=== PATIENT | male | born 1980 | race Hispanic/Latino ===

== ENCOUNTER 2017-06-30 04:16 | Observation (INO) | payer OTHER ==
[2017-06-30] MEDS ORDERED: Sodium Chloride 0.9% 1,000 ML IV STA (05:02)
[2017-06-30 05:16] LABS: BASO # 0.1 K/uL (0.0-0.2); BASO % 1.3 % (0.0-2.0); EOS % 0.6 % (0.0-4.0); HEMOGLOBIN 13.8 g/dL (12.0-18.0); LYMPH # 1.6 K/uL (1.0-4.3); LYMPH % 20.8 % (20.0-40.0); MEAN CELL VOLUME 91.9 fl (80.0-94.0); MEAN CORPUSCULAR HEMOGLOBIN 30.8 pg (27.0-31.0); MEAN CORPUSCULAR HGB CONC 33.5 g/dL (33.0-37.0); MEAN PLATELET VOLUME 7.6 fl (7.2-11.7); MONO # 0.7 K/uL (0.0-0.8); MONO % 8.9 % (0.0-10.0); NEUT # 5.2 K/uL (1.8-7.0); NEUT % 68.4 % (50.0-75.0); NRBC % 0.1 % (0.0-0.0); RBC 4.5 Mil/uL (4.40-5.90); RED CELL DISTRIBUTION WIDTH 15.3 % (11.5-14.5); WHITE BLOOD COUNT 7.7 K/uL (4.8-10.8)
[2017-06-30 05:24] LABS: ALB/GLOB RATIO 1.3 (1.0-2.1); ALBUMIN 3.6 g/dL (3.5-5.0); ALT/SGPT 33 U/L (21-72); AST/SGOT 23 U/L (17-59); BLOOD UREA NITROGEN 8 mg/dl (9-20); CALCIUM 8.3 mg/dL (8.4-10.2); GFR AFRICAN-AMERICAN > 60; GFR NON-AFRICAN AMERICAN > 60; LIPASE 822 U/L (23-300)
--- NOTE | 2017-06-30 05:24 | ED PDOC ---
HPI: Chest Pain Time Seen by Provider: 06/30/17 04:49 Chief Complaint (Nursing): Abdominal Pain Chief Complaint (Provider): Abdominal pain History Per: Patient Additional Complaint(s): Josh is 37 yo M patient with PMH of Anxiety that presents to ED c/o epigastric pain that started 4-5 hours ago while he was sleeping, he said that pain woke him up, he describe the pain 8/10, constant, cramping, no radiated, no allev/ aggrav factors, associated with nbnb vomiting x4 liquid, w/o rest of food on it. He states that on evening he was drinking " wine" on dinner, denies any unusual foods. He denies fever, diarrhea/constipation, chest pain, plapittaions, sob, no urinary symptoms. Past Medical History Vital Signs: Last Vital Signs Temp 97.4 F L 06/30/17 04:25 Pulse 62 06/30/17 04:25 Resp 16 06/30/17 04:25 BP 151/104 H 06/30/17 04:25 Pulse Ox 99 06/30/17 05:51 - Family History Family History: States: No Known Family Hx - Home Medications Home Medications: Ambulatory Orders Medication Instructions Recorded Hydrocodone/Ibuprofen [Vicoprofen 1 tab PO Q6 #12 tab 03/31/14 7.5 mg-200 mg] - Allergies Allergies/Adverse Reactions: Allergies Allergy/AdvReac Type Severity Reaction Status Date / Time No Known Allergies Allergy Verified 03/31/14 11:48 Review of Systems ROS Statement: Except As Marked, All Systems Reviewed And Found Negative Physical Exam - Reviewed Nursing Documentation Reviewed: Yes Vital Signs Reviewed: Yes - Physical Exam Appears: Positive for: No Acute Distress Head Exam: Positive for: NORMAL INSPECTION Cardiovascular/Chest: Positive for: Regular Rate, Rhythm. Negative for: Murmur Respiratory: Positive for: Normal Breath Sounds. Negative for: Rales, Rhonchi, Wheezing Gastrointestinal/Abdominal: Positive for: Bowel Sounds, Soft, Tenderness ( Epigastrium tenderness on palpation, tympanic to percussion, Flood sign negative.). Negative for: Distended Back: Negative for: L CVA Tenderness, R CVA Tenderness Neurologic/Psych: Positive for: Alert, corporate quality manager II-XII, Oriented - Laboratory Results Result Diagrams: 06/30/17 05:05 06/30/17 05:05 - ECG O2 Sat by Pulse Oximetry: 99 - Progress ED Course And Treament: CBC: wnl CMP: wnl Lipase: elevated( 822) Etoh level < 10 UA Drug screen EKG IV fluids Pepcid 20mg IV once Zofran 4mg IV once Reeval. Patient still has pain, elevated lipase level. Toradol for pain Continue IV fluids. Patient to be admitted. Disposition - Clinical Impression Clinical Impression: Pancreatitis - Patient ED Disposition Is Patient to be Admitted: Yes - Disposition Disposition Time: 05:48 Condition: FAIR Forms: [facility] (Iranian)
[2017-06-30] MEDS ORDERED: Lactated Ringer's 1,000 ML IV STA ×3 (05:31→05:40)
[2017-06-30] MEDS: Dextrose 5%/0.9% NS 1,000 ML IV SCH ×2 (08:07→16:24)
--- NOTE | 2017-06-30 08:12 | RAD ---
HISTORY: chest pain COMPARISON: No prior. FINDINGS: LUNGS: Linear atelectasis or bronchovascular overlap is seen in the bilateral medial apices. No acute infiltrate identified bilaterally. PLEURA: No significant pleural effusion identified, no pneumothorax apparent. CARDIOVASCULAR: Normal. OSSEOUS STRUCTURES: No significant abnormalities. VISUALIZED UPPER ABDOMEN: Normal. OTHER FINDINGS: None. IMPRESSION: Limited medial apical linear atelectasis or vascular overlap where fibrosis bilaterally. No acute infiltrate, pleural effusion or pneumothorax bilaterally.
[2017-06-30 08:14] LABS: URINE BILIRUBIN NEGATIVE (NEGATIVE); URINE BLOOD NEGATIVE (NEGATIVE); URINE CLARITY SLIGHTY-CLOUDY (Clear); URINE COLOR YELLOW (YELLOW); URINE GLUCOSE (UA) NEG (Normal); URINE HYALINE CAST 0-2 /hpf (0-2); URINE LEUKOCYTE ESTERASE NEG Leu/uL (Negative); URINE NITRATE NEGATIVE (NEGATIVE); URINE PROTEIN NEGATIVE (NEGATIVE); URINE UROBILINOGEN 0.2-1.0 mg/dL (0.2-1.0)
[2017-06-30 08:24] LABS: BARBITURATES, UR NEGATIVE (NEGATIVE); BENZODIAZEPINES, UR POSITIVE (NEGATIVE); OPIATES, UR NEGATIVE (NEGATIVE); PHENCYCLIDINE, UR NEGATIVE (NEGATIVE)
[2017-06-30 12:38] LABS: HEMOGLOBIN 13.2 g/dL (12.0-18.0); MEAN CELL VOLUME 91.4 fl (80.0-94.0); MEAN CORPUSCULAR HEMOGLOBIN 30.9 pg (27.0-31.0); MEAN CORPUSCULAR HGB CONC 33.7 g/dL (33.0-37.0); RBC 4.28 Mil/uL (4.40-5.90); RED CELL DISTRIBUTION WIDTH 15.3 % (11.5-14.5); WHITE BLOOD COUNT 11.4 K/uL (4.8-10.8)
[2017-06-30 12:56] LABS: BLOOD UREA NITROGEN 6 mg/dl (9-20); CALCIUM 7.7 mg/dL (8.4-10.2); GFR AFRICAN-AMERICAN > 60; GFR NON-AFRICAN AMERICAN > 60; LIPASE 556 U/L (23-300)
--- NOTE | 2017-06-30 14:47 | CARD ---
APPROVED REPORT EKG Measurement Heart [id number] <Conclusion> Sinus bradycardia with sinus arrhythmia Otherwise normal ECG
[2017-06-30 16:27] VITALS: O2SAT 98
--- NOTE | 2017-06-30 17:11 | CP.PCM.CON ---
History of Present Illness - History of Present Illness History of Present Illness: 37 yo male admitted with sudden onset of severe epigastric abdominal pain radiating to his back on the day of admission. He has h/o drinking a six pack of beer daily foryears, though had stopped daily alcohol use about 3 weeks ago. Was given some sort of alcoholic beverage just before these symptoms started. No prior epidodes of pancreatitis though has been having vague abdominal discomfort for about one week. 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 Hx shoulder dislocation x2 - PSYCHIATRIC Hx Psychophysiologic Disorder: Yes Hx Anxiety: Yes Hx Substance Use: Yes - SURGICAL HISTORY Hx Surgeries: Yes Other/Comment: Hx Rhinoplasty x 2 (secondary to trauma) - ANESTHESIA Hx Anesthesia: No Meds Allergies/Adverse Reactions: Allergies Allergy/AdvReac Type Severity Reaction Status Date / Time No Known Allergies Allergy Verified 03/31/14 11:48 - Medications Medications: Current Medications Dextrose/Sodium Chloride (Dextrose 5%/0.9% Ns 1000 Ml) 1,000 mls @ 125 mls/hr IV .Q8H [facility]1983 Stop: 07/01/17 07:54 Last Admin: 06/30/17 16:24 Dose: 125 mls/hr Ketorolac Tromethamine (Toradol) 15 mg IVP Q6 PRN PRN Reason: Pain, moderate (4-7) Last Admin: 06/30/17 10:43 Dose: 15 mg Ondansetron HCl (Zofran Inj) 4 mg IVP Q4 PRN PRN Reason: Nausea/Vomiting Last Admin: 06/30/17 08:07 Dose: 4 mg Pantoprazole Sodium (Protonix Inj) 40 mg IVP DAILY [facility] Last Admin: 06/30/17 08:07 Dose: 40 mg Physical Exam - Constitutional Appears: No Acute Distress - Head Exam Head Exam: ATRAUMATIC - Eye Exam Eye Exam: EOMI - ENT Exam ENT Exam: Mucous Membranes Moist - Neck Exam Neck exam: Positive for: Full Rom - Respiratory Exam Respiratory Exam: Clear to Auscultation Bilateral - Cardiovascular Exam Cardiovascular Exam: REGULAR RHYTHM, +S1, +S2 - GI/Abdominal Exam GI & Abdominal Exam: Normal Bowel Sounds, Soft. absent: Tenderness - Back Exam Back exam: absent: CVA tenderness (L) Results - Vital Signs Recent Vital Signs: Last Vital Signs Temp 98 F 06/30/17 16:26 Pulse 64 06/30/17 16:26 Resp 20 06/30/17 16:26 BP 153/99 H 06/30/17 16:26 Pulse Ox 98 06/30/17 16:26 - Labs Result Diagrams: 06/30/17 12:10 06/30/17 12:10 Labs: Laboratory Results - last 24 hr 06/30/17 06/30/17 06/30/17 05:05 05:05 07:31 WBC 7.7 RBC 4.50 Hgb 13.8 Hct 41.4 MCV 91.9 MCH 30.8 MCHC 33.5 RDW 15.3 H Plt Count 404 H MPV 7.6 Neut % (Auto) 68.4 Lymph % (Auto) 20.8 [place] % (Auto) 8.9 Eos % (Auto) 0.6 Baso % (Auto) 1.3 Neut # (Auto) 5.2 Lymph # (Auto) 1.6 [place] # (Auto) 0.7 Eos # (Auto) 0.0 Baso # (Auto) 0.1 Sodium 140 Potassium 3.5 L Chloride 104 Carbon Dioxide 23 Anion Gap 17 BUN 8 L Creatinine 1.0 Est GFR ( Amer) > 60 Est GFR (Non-Af Amer) > 60 Random Glucose 118 H Calcium 8.3 L Total Bilirubin 1.0 AST 23 ALT 33 Alkaline Phosphatase 41 Total Protein 6.3 Albumin 3.6 Globulin 2.7 Albumin/Globulin Ratio 1.3 Lipase 822 H Urine Color Urine Clarity Urine pH Ur Specific [place] Urine Protein Urine Glucose (UA) Urine Ketones Urine Blood Urine Nitrate Urine Bilirubin Urine Urobilinogen Ur Leukocyte Esterase Urine RBC (Auto) Urine Microscopic WBC Hyaline Casts Urine Opiates Screen Negative Urine Methadone Screen Negative Ur Barbiturates Screen Negative Ur Phencyclidine Scrn Negative Ur Amphetamines Screen Negative U Benzodiazepines Scrn Positive U Oth Cocaine Metabols Negative U Cannabinoids Screen Positive H Alcohol, Quantitative < 10 06/30/17 06/30/17 06/30/17 07:31 12:10 12:10 WBC 11.4 H RBC 4.28 L Hgb 13.2 Hct 39.1 MCV 91.4 MCH 30.9 MCHC 33.7 RDW 15.3 H Plt Count 376 MPV Neut % (Auto) Lymph % (Auto) [place] % (Auto) Eos % (Auto) Baso % (Auto) Neut # (Auto) Lymph # (Auto) [place] # (Auto) Eos # (Auto) Baso # (Auto) Sodium 138 Potassium 4.1 Chloride 100 Carbon Dioxide 24 Anion Gap 18 BUN 6 L Creatinine 0.9 Est GFR ( Amer) > 60 Est GFR (Non-Af Amer) > 60 Random Glucose 160 H Calcium 7.7 L Total Bilirubin AST ALT Alkaline Phosphatase Total Protein Albumin Globulin Albumin/Globulin Ratio Lipase 556 H Urine Color Yellow Urine Clarity Slighty-cloudy Urine pH 6.0 Ur Specific [place] 1.025 Urine Protein Negative Urine Glucose (UA) Neg Urine Ketones 20 Urine Blood Negative Urine Nitrate Negative Urine Bilirubin Negative Urine Urobilinogen 0.2-1.0 Ur Leukocyte Esterase Neg Urine RBC (Auto) 6 H Urine Microscopic WBC 3 Hyaline Casts 0-2 Urine Opiates Screen Urine Methadone Screen Ur Barbiturates Screen Ur Phencyclidine Scrn Ur Amphetamines Screen U Benzodiazepines Scrn U Oth Cocaine Metabols U Cannabinoids Screen Alcohol, Quantitative Assessment & Plan (1) Pancreatitis Assessment and Plan: Clinically better today with improvement in pain and decrease lipase level. Will advance to low fat diet and follow clinically. Status: Acute
[2017-07-01] MEDS: Dextrose 5%/0.9% NS 1,000 ML IV SCH (00:30)
--- NOTE | 2017-07-01 07:32 | CP.PCM.HP ---
History of Present Illness - History of Present Illness History of Present Illness: CC: Severe epigastric pain 37 year old male with no significant pmhx except for anxiety presents to the ED with sudden onset of severe epigastric pain which started about 5 hours prior to admission. States the pain woke him up while sleeping. He describes the pain as constant cramping pain, 8/10 in severity radiating to his back. The pain was associated with non bilious vomiting x 4. States he had stopped drinking alcohol about 3 weeks ago, but prior to admission, he drank an alcoholic drink that was given to him before symptoms started. Denies nausea, diarrhea, constipation, cp, sob, fever or chills Present on Admission - Present on Admission Any Indicators Present on Admission: No Review of Systems - Review of Systems All systems: reviewed and no additional remarkable complaints except (as stated) - Constitutional Constitutional: As Per HPI - Cardiovascular Cardiovascular: As Per HPI - Respiratory Respiratory: As Per HPI - Gastrointestinal Gastrointestinal: As Per HPI, Abdominal Pain, Vomiting - Genitourinary Genitourinary: absent: Change in Urinary Stream, Difficulty Urinating Past Patient History - Infectious Disease Hx of Infectious Diseases: None - Past Medical History & Family History Past Medical History?: Yes Past Family History: Reviewed and not pertinent - Past Social History Smoking Status: Never Smoked Alcohol: Occasional (states: stopped drinking 3 weeks ago) - MUSCULOSKELETAL/RHEUMATOLOGICAL Hx Musculoskeletal Disorders: Yes Other/Comment: 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 Hx shoulder dislocation x2 - PSYCHIATRIC Hx Psychophysiologic Disorder: Yes Hx Anxiety: Yes Hx Substance Use: Yes - SURGICAL HISTORY Hx Surgeries: Yes Other/Comment: Hx Rhinoplasty x 2 (secondary to trauma) - ANESTHESIA Hx Anesthesia: No Meds Allergies/Adverse Reactions: Allergies Allergy/AdvReac Type Severity Reaction Status Date / Time No Known Allergies Allergy Verified 03/31/14 11:48 Physical Exam - Constitutional Appears: Well, No Acute Distress - Head Exam Head Exam: ATRAUMATIC, NORMAL INSPECTION, NORMOCEPHALIC - Eye Exam Eye Exam: EOMI, Normal appearance, PERRL Pupil Exam: NORMAL ACCOMODATION - ENT Exam ENT Exam: Mucous Membranes Moist - Neck Exam Neck exam: Positive for: Full Rom, Normal Inspection - Respiratory Exam Respiratory Exam: Clear to Auscultation Bilateral, NORMAL BREATHING PATTERN - Cardiovascular Exam Cardiovascular Exam: REGULAR RHYTHM, +S1, +S2 - GI/Abdominal Exam GI & Abdominal Exam: Guarding, Normal Bowel Sounds, Soft, Tenderness. absent: Rebound, Rigid - Rectal Exam Rectal Exam: Deferred - Extremities Exam Extremities exam: Positive for: full ROM, normal inspection - Back Exam Back exam: FULL ROM, NORMAL INSPECTION. absent: CVA tenderness (L), CVA tenderness (R) - Neurological Exam Neurological exam: Alert, Oriented x3 - Psychiatric Exam Psychiatric exam: Normal Affect, Normal Mood - Skin Skin Exam: Dry, Normal Color, Warm Results - Vital Signs Recent Vital Signs: Last Vital Signs Temp 98.3 F 07/01/17 00:50 Pulse 85 07/01/17 00:50 Resp 20 07/01/17 00:50 BP 131/83 07/01/17 00:50 Pulse Ox 98 07/01/17 00:50 - Labs Result Diagrams: 07/01/17 10:15 07/01/17 10:15 Labs: Laboratory Results - last 24 hr 06/30/17 06/30/17 06/30/17 07:31 07:31 12:10 WBC 11.4 H RBC 4.28 L Hgb 13.2 Hct 39.1 MCV 91.4 MCH 30.9 MCHC 33.7 RDW 15.3 H Plt Count 376 Sodium Potassium Chloride Carbon Dioxide Anion Gap BUN Creatinine Est GFR ( Amer) Est GFR (Non-Af Amer) Random Glucose Calcium Lipase Urine Color Yellow Urine Clarity Slighty-cloudy Urine pH 6.0 Ur Specific [place] 1.025 Urine Protein Negative Urine Glucose (UA) Neg Urine Ketones 20 Urine Blood Negative Urine Nitrate Negative Urine Bilirubin Negative Urine Urobilinogen 0.2-1.0 Ur Leukocyte Esterase Neg Urine RBC (Auto) 6 H Urine Microscopic WBC 3 Hyaline Casts 0-2 Urine Opiates Screen Negative Urine Methadone Screen Negative Ur Barbiturates Screen Negative Ur Phencyclidine Scrn Negative Ur Amphetamines Screen Negative U Benzodiazepines Scrn Positive U Oth Cocaine Metabols Negative U Cannabinoids Screen Positive H 06/30/17 12:10 WBC RBC Hgb Hct MCV MCH MCHC RDW Plt Count Sodium 138 Potassium 4.1 Chloride 100 Carbon Dioxide 24 Anion Gap 18 BUN 6 L Creatinine 0.9 Est GFR ( Amer) > 60 Est GFR (Non-Af Amer) > 60 Random Glucose 160 H Calcium 7.7 L Lipase 556 H Urine Color Urine Clarity Urine pH Ur Specific [place] Urine Protein Urine Glucose (UA) Urine Ketones Urine Blood Urine Nitrate Urine Bilirubin Urine Urobilinogen Ur Leukocyte Esterase Urine RBC (Auto) Urine Microscopic WBC Hyaline Casts Urine Opiates Screen Urine Methadone Screen Ur Barbiturates Screen Ur Phencyclidine Scrn Ur Amphetamines Screen U Benzodiazepines Scrn U Oth Cocaine Metabols U Cannabinoids Screen - EKG Data EKG comments: Sinus bradycardia with sinus arrhythmia Otherwise normal ECG - Imaging and Cardiology Chest x-ray Additional comment: HISTORY: chest pain COMPARISON: No prior. FINDINGS: LUNGS: Linear atelectasis or bronchovascular overlap is seen in the bilateral medial apices. No acute infiltrate identified bilaterally. PLEURA: No significant pleural effusion identified, no pneumothorax apparent. CARDIOVASCULAR: Normal. OSSEOUS STRUCTURES: No significant abnormalities. VISUALIZED UPPER ABDOMEN: Normal. OTHER FINDINGS: None. IMPRESSION: Limited medial apical linear atelectasis or vascular overlap where fibrosis bilaterally. No acute infiltrate, pleural effusion or pneumothorax bilaterally. Assessment & Plan (1) Acute pancreatitis Assessment and Plan: Multiple Vomiting IVF - D5 NS at 125ml/hr Morphine IV q4hrs PRN Zofran PRN NPO GI consult Trend labs Status: Acute (2) DVT prophylaxis Assessment and Plan: SCD Status: Inactive Priority: Low
[2017-07-01 07:53] VITALS: BP 144/92; PULSE 72; TEMP 97.7
[2017-07-01] MEDS ORDERED: Lactated Ringer's 1,000 ML IV SCH (09:45)
[2017-07-01 10:40] LABS: BASO % 0.4 % (0.0-2.0); EOS % 0.4 % (0.0-4.0); HEMOGLOBIN 12.6 g/dL (12.0-18.0); LYMPH # 2.4 K/uL (1.0-4.3); MEAN CELL VOLUME 91.2 fl (80.0-94.0); MEAN CORPUSCULAR HEMOGLOBIN 30.7 pg (27.0-31.0); MEAN CORPUSCULAR HGB CONC 33.6 g/dL (33.0-37.0); MEAN PLATELET VOLUME 7.9 fl (7.2-11.7); MONO % 9.9 % (0.0-10.0); NEUT # 6.9 K/uL (1.8-7.0); NEUT % 66.3 % (50.0-75.0); NRBC % 0.1 % (0.0-0.0); RBC 4.11 Mil/uL (4.40-5.90); RED CELL DISTRIBUTION WIDTH 15.4 % (11.5-14.5); WHITE BLOOD COUNT 10.4 K/uL (4.8-10.8)
[2017-07-01 10:42] LABS: ALB/GLOB RATIO 1.1 (1.0-2.1); ALBUMIN 2.9 g/dL (3.5-5.0); ALT/SGPT 27 U/L (21-72); AST/SGOT 20 U/L (17-59); BLOOD UREA NITROGEN 4 mg/dl (9-20); CALCIUM 7.6 mg/dL (8.4-10.2); GFR AFRICAN-AMERICAN > 60; GFR NON-AFRICAN AMERICAN > 60; LIPASE 384 U/L (23-300)
[2017-07-01] MEDS ORDERED: Potassium Chloride 20 mEq ER Tab PO ONE (13:34)
[2017-07-01 14:43] VITALS: RESP 14
--- NOTE | 2017-07-01 19:28 | CP.PCM.DIS ---
Provider - Provider Date of Admission: 06/30/17 05:41 Attending physician: Angy Loza MD Time Spent in preparation of Discharge (in minutes): 25 Diagnosis - Discharge Diagnosis (1) Pancreatitis Status: Resolved Hospital Course - Lab Results Lab Results: Most Recent Lab Values WBC 10.4 K/uL (4.8-10.8) 07/01/17 10:15 RBC 4.11 Mil/uL (4.40-5.90) L 07/01/17 10:15 Hgb 12.6 g/dL (12.0-18.0) 07/01/17 10:15 Hct 37.5 % (35.0-51.0) 07/01/17 10:15 MCV 91.2 fl (80.0-94.0) 07/01/17 10:15 MCH 30.7 pg (27.0-31.0) 07/01/17 10:15 MCHC 33.6 g/dL (33.0-37.0) 07/01/17 10:15 RDW 15.4 % (11.5-14.5) H 07/01/17 10:15 Plt Count 357 K/uL (130-400) 07/01/17 10:15 MPV 7.9 fl (7.2-11.7) 07/01/17 10:15 Neut % (Auto) 66.3 % (50.0-75.0) 07/01/17 10:15 Lymph % (Auto) 23.0 % (20.0-40.0) 07/01/17 10:15 [place] % (Auto) 9.9 % (0.0-10.0) 07/01/17 10:15 Eos % (Auto) 0.4 % (0.0-4.0) 07/01/17 10:15 Baso % (Auto) 0.4 % (0.0-2.0) 07/01/17 10:15 Neut # (Auto) 6.9 K/uL (1.8-7.0) 07/01/17 10:15 Lymph # (Auto) 2.4 K/uL (1.0-4.3) 07/01/17 10:15 Hand # (Auto) 1.0 K/uL (0.0-0.8) H 07/01/17 10:15 Eos # (Auto) 0.0 K/uL (0.0-0.7) 07/01/17 10:15 Baso # (Auto) 0.0 K/uL (0.0-0.2) 07/01/17 10:15 Sodium 141 mmol/l (132-148) 07/01/17 10:15 Potassium 3.5 MMOL/L (3.6-5.0) L 07/01/17 10:15 Chloride 103 mmol/L (98-107) 07/01/17 10:15 Carbon Dioxide 25 mmol/L (22-30) 07/01/17 10:15 Anion Gap 17 (10-20) 07/01/17 10:15 BUN 4 mg/dl (9-20) L 07/01/17 10:15 Creatinine 0.9 mg/dl (0.8-1.5) 07/01/17 10:15 Est GFR ( Amer) > 60 07/01/17 10:15 Est GFR (Non-Af Amer) > 60 07/01/17 10:15 Random Glucose 83 mg/dL (75-110) 07/01/17 10:15 Calcium 7.6 mg/dL (8.4-10.2) L 07/01/17 10:15 Total Bilirubin 0.9 mg/dl (0.2-1.3) 07/01/17 10:15 AST 20 U/L (17-59) 07/01/17 10:15 ALT 27 U/L (21-72) 07/01/17 10:15 Alkaline Phosphatase 32 U/L (38-126) L D 07/01/17 10:15 Total Protein 5.5 G/DL (6.3-8.2) L 07/01/17 10:15 Albumin 2.9 g/dL (3.5-5.0) L 07/01/17 10:15 Globulin 2.6 gm/dL (2.2-3.9) 07/01/17 10:15 Albumin/Globulin Ratio 1.1 (1.0-2.1) 07/01/17 10:15 Lipase 384 U/L (23-300) H 07/01/17 10:15 Urine Color Yellow (YELLOW) 06/30/17 07:31 Urine Clarity Slighty-cloudy (Clear) 06/30/17 07:31 Urine pH 6.0 (5.0-8.0) 06/30/17 07:31 Ur Specific [place] 1.025 (1.003-1.030) 06/30/17 07:31 Urine Protein Negative mg/dL (NEGATIVE) 06/30/17 07:31 Urine Glucose (UA) Neg mg/dL (Normal) 06/30/17 07:31 Urine Ketones 20 mg/dL (NEGATIVE) 06/30/17 07:31 Urine Blood Negative (NEGATIVE) 06/30/17 07:31 Urine Nitrate Negative (NEGATIVE) 06/30/17 07:31 Urine Bilirubin Negative (NEGATIVE) 06/30/17 07:31 Urine Urobilinogen 0.2-1.0 mg/dL (0.2-1.0) 06/30/17 07:31 Ur Leukocyte Esterase Neg [place]/uL (Negative) 06/30/17 07:31 Urine RBC (Auto) 6 /hpf (0-3) H 06/30/17 07:31 Urine Microscopic WBC 3 /hpf (0-5) 06/30/17 07:31 Hyaline Casts 0-2 /hpf (0-2) 06/30/17 07:31 Urine Opiates Screen Negative (NEGATIVE) 06/30/17 07:31 Urine Methadone Screen Negative (NEGATIVE) 06/30/17 07:31 Ur Barbiturates Screen Negative (NEGATIVE) 06/30/17 07:31 Ur Phencyclidine Scrn Negative (NEGATIVE) 06/30/17 07:31 Ur Amphetamines Screen Negative (NEGATIVE) 06/30/17 07:31 U Benzodiazepines Scrn Positive (NEGATIVE) 06/30/17 07:31 U Oth Cocaine Metabols Negative (NEGATIVE) 06/30/17 07:31 U Cannabinoids Screen Positive (NEGATIVE) H 06/30/17 07:31 Alcohol, Quantitative < 10 mg/dl (0-10) 06/30/17 05:05 - Hospital Course Hospital Course: 37 year old male with a pmhx of anxiety who presented to ED with c/o of severe epigastric pain. The patient was admitted for pancreatitis. The patient was treated with IVF and pain medications and improved significantly. The patient tolerated diet without any issues. The patient was discharged home with instructions for outpatient follow up. Discharge Exam - Head Exam Head Exam: ATRAUMATIC, NORMOCEPHALIC - ENT Exam ENT Exam: Mucous Membranes Moist - Respiratory Exam Respiratory Exam: Clear to PA & Lateral, NORMAL BREATHING PATTERN - Cardiovascular Exam Cardiovascular Exam: REGULAR RHYTHM, +S1, +S2 - GI/Abdominal Exam GI & Abdominal Exam: Normal Bowel Sounds, Soft - Neurological Exam Neurological exam: Alert, Oriented x3 - Skin Skin Exam: Dry, Normal Color, Warm Discharge Plan - Follow Up Plan Condition: STABLE Disposition: HOME/ ROUTINE Instructions: Pancreatitis (DC), Pancreatitis (DC) Additional Instructions: Follow up with Primary Doctor within one week. Referrals: Soy Zheng MD [Staff Provider] - Angy Loza MD [Staff Provider] -
--- NOTE | 2017-07-01 20:40 | CP.PCM.PN ---
Subjective - Date & Time of Evaluation Date of Evaluation: 07/01/17 Time of Evaluation: 14:00 - Subjective Subjective: Diet advanced yesterday and patient doing well. Denies abdominal pain. Objective - Vital Signs/Intake and Output Vital Signs (last 24 hours): Temp Pulse Resp BP Pulse Ox 97.7 F 72 14 144/92 H 98 07/01/17 09:00 07/01/17 09:00 07/01/17 14:22 07/01/17 09:00 07/01/17 09:00 - Labs Labs: 07/01/17 10:15 07/01/17 10:15 - Head Exam Head Exam: ATRAUMATIC - Eye Exam Eye Exam: PERRL Pupil Exam: NORMAL ACCOMODATION - ENT Exam ENT Exam: Mucous Membranes Moist - Neck Exam Neck Exam: Full ROM - Respiratory Exam Respiratory Exam: Clear to Ausculation Bilateral - Cardiovascular Exam Cardiovascular Exam: REGULAR RHYTHM, +S1, +S2 - GI/Abdominal Exam GI & Abdominal Exam: Soft, Normal Bowel Sounds. absent: Tenderness Assessment and Plan (1) Pancreatitis Assessment & Plan: Remains pain free and lipase continues to come down. May be discharged today. Alcohol abstinence strongly advised. Status: Acute
== END 2017-07-01 15:16 | disposition home or self-care (01) ==
LOC: H.ER 04:16 → INTOOBSV 05:41 → H.ERHOLD 05:41 → H.MEDSURG1 14:01
PROVIDERS: ADMIT Internal Medicine; ATTEND Internal Medicine
DX: K85.90 Acute pancreatitis without necrosis or infection, unspecified (principal); F41.9 Anxiety disorder, unspecified
CPT/HCPCS: 36415; 71045; 80053; 80320; 80324; 80345; 80346; 80349; 80353; 80358; 80361; 81003; 83690; 83992; 85025; 85027; 93005; 96361; 96374; 96375; 96376; 99285; C9113; G0378; J1885; J2405; J7040; J7042; J7120